=== PATIENT | male | born 1980 | race African-American/Black ===

== ENCOUNTER 2017-03-26 19:54 | Emergency (ER) | payer OTHER ==
[~2017-03-26 19:54] MED LIST: FLEXERIL10 M1 PO; MEDROL DOSEPAK4 MG PO; MOTRIN20 MG/ML PO; NO MEDICATIONS; VICODIN 5/500 T1 TAB PO
== END 2017-03-26 23:42 | disposition home or self-care (01) ==
LOC: CFTX 19:54 → CED 19:54 → CFTX 22:06
DX: S01.112A Laceration without foreign body of left eyelid and periocular area, initial encounter (principal); S90.812A Abrasion, left foot, initial encounter; S90.411A Abrasion, right great toe, initial encounter; S50.812A Abrasion of left forearm, initial encounter; S00.81XA Abrasion of other part of head, initial encounter; I10 Essential (primary) hypertension; F17.200 Nicotine dependence, unspecified, uncomplicated; Z23 Encounter for immunization; Z88.5 Allergy status to narcotic agent; V29.40XA Motorcycle driver injured in collision with unspecified motor vehicles in traffic accident, initial encounter; Y92.410 Unspecified street and highway as the place of occurrence of the external cause
CPT/HCPCS: 12011; 90471; 90715; 99283